=== PATIENT | female | born 1970 | race Caucasian/White ===

== ENCOUNTER 2024-08-24 00:50 | Inpatient (IN) | payer MEDICAID, SELFPAY ==
[2024-08-24] VITALS (10 sets, daily range): BP systolic 102–129; BP diastolic 60–73; PULSE 61–86; RESP 14–95; TEMP 36.4–37.1; O2SAT 93–99; BMI 26.6; BMI 30.9
--- NOTE | 2024-08-24 01:30 | PC.NURSE ---
no answer when called to be seen by provider
--- NOTE | 2024-08-24 01:59 | XR_ITS ---
Examination: CT cervical spine without contrast 2-D sagittal reconstructions 2-D coronal reconstructions 3-D reconstructions. Exam date and time:August 24, 2024 0307 hrs. Indications: Patient fell today with into the neck, neck pain CTDI:vol (mGy) 8.78 DLP: (mGycm) 165 Technique: Multiple 2 mm axial sections of the cervical spine have been obtained. The coronal and sagittal reconstructions have been obtained. 3-D reconstructions have been obtained. Low dose protocols were performed. One or more of the following dose reduction techniques were used; automated exposure control, adjustment of the mA and/or KV according to patient size, use of iterative reconstruction technique. Findings: The study is severely limited by continual patient motion No gross cervical fracture Impression: The study is severely limited by continual patient motion No gross cervical fracture Repeat this study as clinically warranted
--- NOTE | 2024-08-24 01:59 | XR_ITS ---
Examination: CT left knee, without contrast. 2-D sagittal reconstructions. 2-D coronal reconstructions. 3-D reconstructions. Date and time of exam:August 24, 2024 0310 hrs. Indications: Patient fell today with injury to the knee, knee pain CTDI: vol (mGy):9.93 DLP: (mGycm):281 Technique: Multiple 1.25 mm axial sections of the left knee without intravenous contrast have been obtained. 2-D sagittal and coronal reconstructions have been obtained. 3-D reconstructions have been obtained. Low dose protocols were performed. One or more of the following dose reduction techniques were used; automated exposure control, adjustment of the mA and/or KV according to patient size, use of iterative reconstruction technique. Findings: Acute fractures supracondylar femur extending to the prosthetic femoral condylar component No significant displacement No loosening of the orthopedic hardware Impression: Acute supracondylar fractures distal femur without significant displacement
--- NOTE | 2024-08-24 01:59 | XR_ITS ---
Examination: CT brain head without contrast. 2-D sagittal coronal reconstructions Date and time of exam:August 24, 2024 1507 hrs. Indications: Patient fell today with injury to the head, head pain CTDI: vol (mGy):45.4 DLP: (mGycm):856 Technique: Multiple CT axial sections of the brain have been obtained, 5 mm slice thickness. Contrast has not been administered. 2-D sagittal, coronal reconstructions have been obtained Low dose protocols were performed. One or more of the following dose reduction techniques were used; automated exposure control, adjustment of the mA and/or KV according to patient size, use of iterative reconstruction technique. Findings: The study is severely degraded by patient motion No gross hemorrhage mass effect or midline shift Impression: The study is severely degraded by continual patient motion No gross hemorrhage mass effect or midline shift Repeat this study as clinically warranted
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
--- NOTE | 2024-08-24 03:44 | PRELIM_ITS ---
CT scan of the head without intravenous contrast (axial sections with sagittal and coronal reformats). August 24, 2024 0307 hours Clinical History: Fall Comparison: None Findings: Motion artifact limits evaluation. There is no definite intracranial hemorrhage, extra-axial collection, mass, mass-effect or midline shift. There is good plaza-white differentiation. There is no CT evidence of acute large vascular territorial infarct. Ventricles are not enlarged or effaced. Visualized paranasal sinuses and tympanomastoid cavities are clear. The bony calvarium is intact. Impression: Limited study secondary to motion artifact. No definite intracranial hemorrhage, mass-effect or midline shift. No CT evidence of acute large vascular territorial infarct. Report Electronically Signed By: Lucio Haynes 08/24/2024 3:44:02 AM [EST]
--- NOTE | 2024-08-24 03:57 | PRELIM_ITS ---
CT scan of the cervical spine without intravenous contrast (axial sections with sagittal and coronal reformats). August 24, 2024 0307 hours Clinical History: Fall Comparison: None Findings: Motion artifact limits evaluation. There is no definite fracture, traumatic subluxation or other acute osseous abnormality of the cervical spine. There is straightening of the cervical spine. There are multilevel degenerative disc changes and spondylosis of the cervical spine with multilevel foraminal stenosis. The prevertebral soft tissues are unremarkable. Impression: Limited by motion artifact. No definite acute osseous abnormality of the cervical spine. Straightening of the cervical spine may indicate muscle spasm. Degenerative change. Report Electronically Signed By: Lucio Haynes 08/24/2024 3:56:41 AM [EST]
--- NOTE | 2024-08-24 04:07 | PRELIM_ITS ---
CT left knee without intravenous contrast (axial sections with sagittal and coronal reformats) August 24, 2024 at 0310 hours Clinical History: Fall; knee replacement. Comparison: None available at the time of this report. Findings: Status post bilateral knee joint replacement. No evidence of hardware loosening or failure. No dislocation. Acute fracture of the distal femur extending to the prosthesis. Impression: Acute fracture of the distal femur extending to the prosthesis. Orthopedic consult is recommended. Report Electronically Signed By: Slade Camargo 08/24/2024 4:06:43 AM [EST]
--- NOTE | 2024-08-24 05:08 | XR_ITS ---
Examination: Knee, left , 3 views Technique: Knee AP, lateral, oblique 3 views Date and time of exam: August 24, 2024 0516 hrs. Comparison June 24, 2021 Indications: Patient fell today with injury to the knee, knee pain. Findings: Acute supracondylar fracture distal femoral shaft. No significant displacement Tibia fibula appear intact Impression: Acute supracondylar fractures distal femoral shaft without significant displacement
[2024-08-24] MEDS: ONDANSETRON INJ 2 MG/ML INJ 2 ML 4 MG IV ×2 (06:09→10:32)
[2024-08-24] MEDS: MORPHINE SULF INJ 10 MG/ML VIAL 5 MG IVP (06:09)
[2024-08-24 06:38] LABS: Basophils % (Auto) 0 % (0-2.5); Eosinophils % (Auto) 0 % (0-10); Hematocrit 32.4 % (36.0-46.0); Immature Granulocytes % (Auto) 0 % (0-0); Immature Granulocytes Auto 0.02 Thou/mm3 (0.00-0.00); Lymphocytes % (Auto) 12 % (10-50); Mean Corpuscular Hemoglobin 29.3 pg (25.0-35.0); Mean Corpuscular Volume 86 fL (80-100); Monocytes # (Auto) 0.5 Thou/mm3 (0.0-0.8); Monocytes % (Auto) 6 % (0-12); Neutrophils # (Auto) 6.3 Thou/mm3 (1.8-7.7); Neutrophils % (Auto) 81 % (37-80); Nucleated Red Blood Cell % 0 /100 WBC (0); Platelet Count 242 Thou/mm3 (140-440); RDW Standard Deviation 44.1 fL (36.4-46.3); Red Blood Count 3.75 Miln/mm3 (4.00-5.20); White Blood Count 7.8 Thou/mm3 (3.6-11.0)
[2024-08-24 06:57] LABS: Alanine Aminotransferase 15 U/L (10-49); Albumin, Serum 4.4 gm/dL (3.5-5.0); Albumin/Globulin Ratio 1.7 (1.2-2.2); Alkaline Phosphatase 75 U/L (46-116); Anion Gap 6 (7-16); Aspartate Amino Transferase 14 U/L (0-34); BUN/Creatinine Ratio 15 Ratio (12-20); Bilirubin,Total 0.4 mg/dL (0.3-1.2); Blood Urea Nitrogen 12 mg/dL (9-23); Calcium 9.1 mg/dL (8.3-10.6); Calcium (Corrected) 9.1 mg/dL (8.5-10.1); Chloride 98 mMol/L (98-107); Creatinine (Component) 0.8 mg/dL (0.6-1.3); Estimated Creatinine Clearance 81.2 mL/min (>60); Globulin 2.6 gm/dL (2.3-3.5); Glucose 114 mg/dL (74-106); Osmolality,Calculated 263 (275-295); Potassium 4.3 mMol/L (3.4-5.1); Sodium 131 mMol/L (136-145); eGFR > 60 See Note
[2024-08-24 06:59] LABS: Partial Thromboplastin Time 24.5 Seconds (22.0-36.0); Prothrombin Time 10.8 Seconds (9.0-12.2)
--- NOTE | 2024-08-24 09:20 | PD.EDADDENDU ---
Emergency Room Addendum Addendum Narrative: 09:15 AM: Consultation I spoke with Dr. Oliveros states the patient is to be admitted to hospitalist service and he will consult for surgery 09:17 AM: Hospitalist Dr. Ramirez is here in the emergency department he will admit the patient At time of admission patient no distress
[2024-08-24] MEDS: MORPHINE SULF INJ 10 MG/ML VIAL IVP (10:31)
[2024-08-24] MEDS: SODIUM CHLORIDE 0.9% 1000 ML 1,000 ML 75 ML IV (10:38)
--- NOTE | 2024-08-24 12:25 | PC.NURSE ---
PT PASSED NURSE SWALLOW EVAL. LUNCH TRAY PROVIDED.
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
[2024-08-24] MEDS: NICOTINE PATCH 14 MG/24 HR PATCH.TD24 TOP (14:11)
[2024-08-24] MEDS: MORPHINE SULF INJ 10 MG/ML VIAL 2 MG IVP ×4 (14:12→22:12)
[2024-08-24 15:30] LABS: Sodium 138 mMol/L (136-145)
[2024-08-24] MEDS: ENOXAPARIN SOD INJ 40 MG/0.4 ML SYRINGE SC (15:39)
[2024-08-24] MEDS: HYDROcodone/APAP 5/325 TABLET 1 TAB PO ×2 (16:22→21:10)
[2024-08-25] VITALS (8 sets, daily range): BP systolic 102–121; BP diastolic 47–74; PULSE 63–84; RESP 16–97; TEMP 36–36.9; O2SAT 94–99
[2024-08-25] MEDS: MORPHINE SULF INJ 10 MG/ML VIAL 2 MG IVP ×4 (00:15→06:32)
[2024-08-25] MEDS: HYDROcodone/APAP 5/325 TABLET 1 TAB PO ×2 (01:11→05:26)
[2024-08-25 05:46] LABS: Basophils % (Auto) 0 % (0-2.5); Eosinophils % (Auto) 1 % (0-10); Hematocrit 28.3 % (36.0-46.0); Hemoglobin 9.3 g/dL (12.0-16.0); Immature Granulocytes % (Auto) 0 % (0-0); Immature Granulocytes Auto 0.01 Thou/mm3 (0.00-0.00); Lymphocytes # (Auto) 1.5 Thou/mm3 (1.0-4.8); Lymphocytes % (Auto) 32 % (10-50); Mean Corpuscular HGB Conc 32.9 g/dl (31.0-37.0); Mean Corpuscular Hemoglobin 29.4 pg (25.0-35.0); Mean Corpuscular Volume 90 fL (80-100); Monocytes # (Auto) 0.5 Thou/mm3 (0.0-0.8); Monocytes % (Auto) 11 % (0-12); Neutrophils # (Auto) 2.5 Thou/mm3 (1.8-7.7); Neutrophils % (Auto) 56 % (37-80); Nucleated Red Blood Cell % 0 /100 WBC (0); Platelet Count 198 Thou/mm3 (140-440); RDW Standard Deviation 46.9 fL (36.4-46.3); Red Blood Count 3.16 Miln/mm3 (4.00-5.20); White Blood Count 4.5 Thou/mm3 (3.6-11.0)
[2024-08-25 06:23] LABS: Alanine Aminotransferase 11 U/L (10-49); Albumin, Serum 3.9 gm/dL (3.5-5.0); Albumin/Globulin Ratio 1.8 (1.2-2.2); Alkaline Phosphatase 66 U/L (46-116); Anion Gap 3 (7-16); Aspartate Amino Transferase 11 U/L (0-34); BUN/Creatinine Ratio 13 Ratio (12-20); Bilirubin,Total 0.3 mg/dL (0.3-1.2); Blood Urea Nitrogen 8 mg/dL (9-23); Calcium 8.4 mg/dL (8.3-10.6); Calcium (Corrected) 8.5 mg/dL (8.5-10.1); Carbon Dioxide 30.4 mMol/L (20.0-31.0); Chloride 107 mMol/L (98-107); Creatinine (Component) 0.6 mg/dL (0.6-1.3); Estimated Creatinine Clearance 116.3 mL/min (>60); Globulin 2.2 gm/dL (2.3-3.5); Glucose 103 mg/dL (74-106); Magnesium 2.1 mg/dL (1.6-2.6); Osmolality,Calculated 277 (275-295); Potassium 3.7 mMol/L (3.4-5.1); Sodium 140 mMol/L (136-145); Total Protein 6.1 gm/dL (5.7-8.2); eGFR > 60 See Note
[2024-08-25] MEDS: NICOTINE PATCH 14 MG/24 HR PATCH.TD24 TOP (09:05)
[2024-08-25] MEDS: HYDROcodone/APAP 7.5/325 TABLET 1 TAB PO ×2 (09:05→21:50)
--- NOTE | 2024-08-25 09:50 | PC.SS ---
Patient Adrienne Garcia is a 54 Year old female admitted for L Femur Fracture. SS met with patient at bedside. Patient reports she lives at home with her life partner, She reports that her sister, Evelyne Carbone is her surrogate decision maker [phone]. Patient reports she did not utilize any source of DME to assist with ambulation prior to admission. Pharmacy of choice is [facility]. Prior to admission patient was able to complete ADL's independently. Patients PCP is Kain Velasquez. SS inquired about SNF. Patient is agreeable to discharge to SNF if needed. SS will submit SNF referral for SNF, [facility]. SS will stand by for further needs. Discharge plan: SNF Next of Kin: Sister, Evelyne Carbone [phone]
--- NOTE | 2024-08-25 09:57 | PC.SS ---
Patient Adrienne Garcia is a 54 Year old female admitted for L Femur Fracture. SS met with patient at bedside. Patient reports she lives at home with her life partner, She reports that her sister, Evelyne Carbone is her surrogate decision maker [phone]. Patient reports she did not utilize any source of DME to assist with ambulation prior to admission. Pharmacy of choice is [facility]. Prior to admission patient was able to complete ADL's independently. Patients PCP is Kain Velasquez. SS inquired about SNF. Patient is agreeable to discharge to SNF if needed. SS will submit SNF referral for SNF, [facility] choice [facility]. SS will stand by for further needs. Discharge plan: SNF Next of Kin: Sister, Evelyne Carbone [phone]
[2024-08-25] MEDS: HYDROmorphone INJ 2 MG/ML VIAL 0.25 MG IVP ×3 (11:27→20:03)
--- NOTE | 2024-08-25 12:41 | PC.SS ---
SS follow up note; SS sent SNF referral through [facility] to all local facilities, SS attachedf [facility] as well.
--- NOTE | 2024-08-25 15:44 | ESPR_ITS ---
<Statement entered by Neva Bonds MD - 08/25/24 16:57> I discussed with and supervised my co-resident involved in the care of this patient. I agree with the assessment and plan as documented above. Patient admitted for L femur fracture. Plan for OR tomorrow with Dr. Oliveros. Neva Bonds MD PGY-3 Documentation for date of: 08/25/24 Subjective Subjective Interval history: Patient was seen at bedside this morning. No overnight events. Patient received multiple doses of morphine 2 mg yesterday as well as [place]. Switch patient's pain management to Dilaudid 0.25 every 4 hours and increased [place] to 7.5. NPO at midnight for surgery tomorrow. Exam Vital Signs Temp Pulse Resp BP Pulse Ox O2 Del Method 98.5 F 74 16 110/74 98 Room Air 08/25/24 11:43 08/25/24 11:43 08/25/24 11:43 08/25/24 11:43 08/25/24 11:43 08/25/24 11:43 Narrative Exam General: A/O x3, no acute distress, well-nourished, well-developed Eyes: PERRL, EOMI. Anicteric, vision grossly intact. Ears: No ear pain, no ear discharge, Hearing grossly intact. Nose: No nasal discharge. Mouth/Throat: Moist mucous membranes, no redness, no lesions. Neck: Neck supple, non-tender, no cervical lymphadenopathy. Lungs: Clear HELIO to auscultation and percussion, No accessory muscle use. Cardio: Normal S1/S2, regular rhythm, no murmurs, no JVD Abdomen: Soft, non-tender, no palpable masses, peristalsis present, no guarding or rebound. Extremities: Symmetrical, no significant deformities, no peripheral edema , peripheral pulses presents. L knee still swollen and tender to palpation, no bruising appreciated Skin: No rashes, no lesions, warm to touch. Neuro: No focal neurological deficits. motor and sensory intact Psych: Cooperative, appropriate mood and effect. Objective Labs 08/26/24 04:58 08/26/24 04:58 Labs: Laboratory Results - last 24 hr 08/25/24 08/25/24 03:55 14:26 WBC 4.5 D RBC 3.16 L Hgb 9.3 L Hct 28.3 L MCV 90 MCH 29.4 MCHC 32.9 RDW Std Deviation 46.9 H Plt Count 198 D Neut % (Auto) 56 Lymph % (Auto) 32 [place] % (Auto) 11 Eos % (Auto) 1 Baso % (Auto) 0 Neut # (Auto) 2.5 Lymph # (Auto) 1.5 [place] # (Auto) 0.5 Eos # (Auto) 0.0 Baso # (Auto) 0.0 Immature Gran # (Auto) 0.01 H Absolute Nucleated RBC 0.00 Immature Gran % 0 Nucleated RBC % 0 Sodium 140 Potassium 3.7 D Chloride 107 Carbon Dioxide 30.4 Anion Gap 3 L BUN 8 L Creatinine 0.6 Estim Creat Clear Calc 116.3 eGFR > 60 BUN/Creatinine Ratio 13 Glucose 103 Calculated Osmolality 277 Calcium 8.4 Corrected Calcium 8.5 Magnesium 2.1 Total Bilirubin 0.3 AST 11 ALT 11 Alkaline Phosphatase 66 Total Protein 6.1 Albumin 3.9 D Globulin 2.2 L Albumin/Globulin Ratio 1.8 Crossmatch See Detail Blood Bank Wristband ID Yes Quality Measures Quality Measures none Assessment & Plan Assessment Current Active Medications: Generic Name Dose Route Start Last Admin Trade Name Freq PRN Reason Stop Dose Admin Acetaminophen 650 mg 08/24/24 16:17 Acetaminophen 325 Mg Tablet PO 09/23/24 10:09 Q6H PRN pain and Fever >100.4 Hydrocodone Bitart/Acetaminophen 1 tab 08/25/24 09:00 08/25/24 09:05 Hydrocodone/Apap 7.5/325 Tablet PO 08/30/24 08:59 1 tab Q4HR PRN Administration PAIN 4-6 Hydromorphone HCl 0.25 mg 08/25/24 11:00 08/25/24 15:36 Hydromorphone Inj 2 Mg/Ml Vial IVP 08/30/24 10:59 0.25 mg Q4HR PRN Administration PAIN 7-10 Nicotine 14 mg 08/24/24 10:15 08/25/24 09:05 Nicotine Patch 14 Mg/24 Hr Patch.Td24 TOP 09/23/24 10:14 14 mg QDAY OMAR Administration Ondansetron HCl 4 mg 08/24/24 10:10 08/24/24 10:32 Ondansetron Inj 2 Mg/Ml Inj 2 Ml IV 09/23/24 10:09 4 mg Q6H PRN Administration NAUSEA OR VOMITING Protocol Plan 54-year-old female with past medical history of bilateral knee replacement, active smoker, and Anxiety/Depression was admitted to the hospital on 08/24/2024 for nondisplaced left femoral fracture. #Nondisplaced left femoral fracture secondary to #Mechanical fall #Hx of bilateral knee replacement ? Patient came in with complaints of mechanical fall in which she landed on her bent left knee ? Left knee CT showed acute supracondylar fracture of the distal femur without significant displacement ? Left knee x-ray showed acute supracondylar fracture of distal femoral shaft without significant displacement ?Patient will go to the OR tomorrow, NPO midnight Plan: ? Pain management with Dilaudid 0.25 every 4 hours as needed, increased [place] to 7.5 4 hours as needed, and Tylenol 650 mg Q6 as needed ? Orthopedic surgeon consulted, appreciate recommendations ?Will to monitor #Hypoosmolar hyponatremia ? Sodium 140 today ? Likely be due to dehydration given the patient did not have anything to drink or eat prior to going to the hospital Plan: ? Will continue to monitor #Normocytic normochromic anemia ? Hemoglobin today 9.3 ? Baseline hemoglobin 12.1 ? DDx nutrient deficiency versus less likely blood loss ?No active signs of bleeding Plan: ? Will check for hemoglobin less than 7 ? Will continue to monitor #Active smoker ? Active smoking can play a role in possible underlying osteoporosis ? Nicotine patch ordered #Hx of Anxiety and Depression ? Will restart patient's home medications once med reconciliation is done Disposition: Patient admitted to med surg for L femoral fracture pending surgery on Sunday. Diet: NPO at midnight GI prophylaxis: not indicated DVT prophylaxis: SCDs Code: Full code Case disclosed with Attending Dr. Roa and my senior Dr. Bonds PGY3 Mac Brooks PGY1 Attending Provider Attestation/Addendum Face to face evaluation was performed by me. I have personally seen and examined the patient. I discussed the assessment and plan with the entire medicine team. I reviewed available medical records, imaging studies, laboratory results. I agree with the above subjective data, objective findings, assessment and plan except as corrected by me or noted below #Nondisplaced left femoral fracture secondary to #Mechanical fall #Hx of bilateral knee replacement -pain control orthopedic surgery consulted plan for OR
[2024-08-26] VITALS (13 sets, daily range): BP systolic 90–143; BP diastolic 58–85; PULSE 56–101; RESP 14–95; TEMP 36.1–37; O2SAT 95–100
[2024-08-26] MEDS: HYDROmorphone INJ 2 MG/ML VIAL 0.25 MG IVP ×5 (00:17→22:26)
[2024-08-26 06:15] LABS: Basophils % (Auto) 1 % (0-2.5); Eosinophils # (Auto) 0.1 Thou/mm3 (0.0-0.5); Eosinophils % (Auto) 1 % (0-10); Hematocrit 28.5 % (36.0-46.0); Hemoglobin 9.5 g/dL (12.0-16.0); Immature Granulocytes % (Auto) 0 % (0-0); Immature Granulocytes Auto 0.02 Thou/mm3 (0.00-0.00); Lymphocytes # (Auto) 1.6 Thou/mm3 (1.0-4.8); Lymphocytes % (Auto) 34 % (10-50); Mean Corpuscular HGB Conc 33.3 g/dl (31.0-37.0); Mean Corpuscular Hemoglobin 29.3 pg (25.0-35.0); Mean Corpuscular Volume 88 fL (80-100); Monocytes # (Auto) 0.6 Thou/mm3 (0.0-0.8); Monocytes % (Auto) 12 % (0-12); Neutrophils # (Auto) 2.5 Thou/mm3 (1.8-7.7); Neutrophils % (Auto) 52 % (37-80); Nucleated Red Blood Cell % 0 /100 WBC (0); Platelet Count 225 Thou/mm3 (140-440); RDW Standard Deviation 45.5 fL (36.4-46.3); Red Blood Count 3.24 Miln/mm3 (4.00-5.20); White Blood Count 4.7 Thou/mm3 (3.6-11.0)
[2024-08-26 06:33] LABS: Alanine Aminotransferase 9 U/L (10-49); Albumin, Serum 4.1 gm/dL (3.5-5.0); Albumin/Globulin Ratio 1.8 (1.2-2.2); Alkaline Phosphatase 68 U/L (46-116); Anion Gap 5 (7-16); Aspartate Amino Transferase 14 U/L (0-34); BUN/Creatinine Ratio 12 Ratio (12-20); Bilirubin,Total 0.4 mg/dL (0.3-1.2); Blood Urea Nitrogen 6 mg/dL (9-23); Calcium 9.1 mg/dL (8.3-10.6); Calcium (Corrected) 9.1 mg/dL (8.5-10.1); Carbon Dioxide 29.6 mMol/L (20.0-31.0); Chloride 104 mMol/L (98-107); Creatinine (Component) 0.5 mg/dL (0.6-1.3); Estimated Creatinine Clearance 139.6 mL/min (>60); Globulin 2.3 gm/dL (2.3-3.5); Glucose 91 mg/dL (74-106); Magnesium 1.8 mg/dL (1.6-2.6); Osmolality,Calculated 275 (275-295); Potassium 3.5 mMol/L (3.4-5.1); Sodium 139 mMol/L (136-145); Total Protein 6.4 gm/dL (5.7-8.2); eGFR > 60 See Note
[2024-08-26] MEDS: NICOTINE PATCH 14 MG/24 HR PATCH.TD24 TOP (08:39)
[2024-08-26] MEDS: SODIUM CHLORIDE 0.9% 1000 ML 1,000 ML 100 ML IV (08:41)
--- NOTE | 2024-08-26 10:00 | PC.SS ---
SS contacted Sarah from [facility] and she informed SS she would be coming by to do an onsite visit to determine if they are able to take patient.
--- NOTE | 2024-08-26 12:31 | PC.SS ---
Addendum entered by Lauren Fuentes 08/26/24 12:44: SS follow up note; SS attempted to meet with patient in regards to SNF choice, however patient was taken to surgery. SS will meet with patient at a later time. Original Note: SS follow up note; Patient is pending surgery.
--- NOTE | 2024-08-26 12:45 | XR_ITS ---
Examination: Left femur 4 views Fluoroscopy Exam date and time: August 26, 2024 1538 hours INDICATIONS: Acute fracture distal femur August 24, 2024, operative reduction internal fixation fracture today FINDINGS: Operative reduction internal fixation fracture distal femoral shaft Anatomic alignment Orthopedic hardware satisfactory position Fluoroscopy 54 seconds radiation dose 2.48 milligray IMPRESSION: Operative reduction internal fixation fracture distal femur with anatomic alignment
--- NOTE | 2024-08-26 13:32 | ESPR_ITS ---
<Statement entered by Neva Bonds MD - 08/26/24 15:28> I discussed with and supervised my co-resident involved in the care of this patient. I agree with the assessment and plan as documented above. Patient seen and examined at bedside. Overnight, had extra dose of pain medication. This morning, patient is feeling well. Patient able to move toes, feet are warm. Plan for OR today to repair left femur fracture. After surgery, will get PT eval and start DVT prophylaxis. Neva Bonds MD PGY-3 Documentation for date of: 08/26/24 Subjective Subjective Interval history: Patient was seen at bedside this morning. No overnight events. Patient remained n.p.o. as she was going for the OR today. She had a negative balance of 3.1 L therefore gave patient 1 L of normal saline. Patient will be taken to the OR today in the afternoon. Pain is well controlled. Will continue to monitor. Exam Vital Signs Temp Pulse Resp BP Pulse Ox O2 Del Method 97.5 F 74 18 121/61 95 Room Air 08/26/24 12:00 08/26/24 12:00 08/26/24 12:00 08/26/24 12:00 08/26/24 12:00 08/26/24 12:00 Narrative Exam General: A/O x3, no acute distress, well-nourished, well-developed Eyes: PERRL, EOMI. Anicteric, vision grossly intact. Ears: No ear pain, no ear discharge, Hearing grossly intact. Nose: No nasal discharge. Mouth/Throat: Moist mucous membranes, no redness, no lesions. Neck: Neck supple, non-tender, no cervical lymphadenopathy. Lungs: Clear HELIO to auscultation and percussion, No accessory muscle use. Cardio: Normal S1/S2, regular rhythm, no murmurs, no JVD Abdomen: Soft, non-tender, no palpable masses, peristalsis present, no guarding or rebound. Extremities: Symmetrical, no significant deformities, no peripheral edema , peripheral pulses presents. L knee still swollen and tender to palpation, no bruising appreciated Skin: No rashes, no lesions, warm to touch. Neuro: No focal neurological deficits. motor and sensory intact Psych: Cooperative, appropriate mood and effect. Objective Labs 08/26/24 04:58 08/26/24 04:58 Labs: Laboratory Results - last 24 hr 08/25/24 08/26/24 14:26 04:58 WBC 4.7 RBC 3.24 L Hgb 9.5 L Hct 28.5 L MCV 88 MCH 29.3 MCHC 33.3 RDW Std Deviation 45.5 Plt Count 225 Neut % (Auto) 52 Lymph % (Auto) 34 Wallace % (Auto) 12 Eos % (Auto) 1 Baso % (Auto) 1 Neut # (Auto) 2.5 Lymph # (Auto) 1.6 Wallace # (Auto) 0.6 Eos # (Auto) 0.1 Baso # (Auto) 0.0 Immature Gran # (Auto) 0.02 H Absolute Nucleated RBC 0.00 Immature Gran % 0 Nucleated RBC % 0 Sodium 139 Potassium 3.5 Chloride 104 Carbon Dioxide 29.6 Anion Gap 5 L BUN 6 L Creatinine 0.5 L Estim Creat Clear Calc 139.6 eGFR > 60 BUN/Creatinine Ratio 12 Glucose 91 Calculated Osmolality 275 Calcium 9.1 Corrected Calcium 9.1 Magnesium 1.8 Total Bilirubin 0.4 AST 14 ALT 9 L Alkaline Phosphatase 68 Total Protein 6.4 Albumin 4.1 Globulin 2.3 Albumin/Globulin Ratio 1.8 Blood Type B Positive Antibody Screen NEGATIVE Crossmatch See Detail Blood Bank Wristband ID Yes Quality Measures Quality Measures none Assessment & Plan Assessment Current Active Medications: Generic Name Dose Route Start Last Admin Trade Name Freq PRN Reason Stop Dose Admin Acetaminophen 650 mg 08/24/24 16:17 Acetaminophen 325 Mg Tablet PO 09/23/24 10:09 Q6H PRN pain and Fever >100.4 Hydrocodone Bitart/Acetaminophen 1 tab 08/25/24 09:00 08/25/24 21:50 Hydrocodone/Apap 7.5/325 Tablet PO 08/30/24 08:59 1 tab Q4HR PRN Administration PAIN 4-6 Albuterol/Ipratropium 3 ml 08/26/24 13:14 Albuterol/Ipratropium (Duoneb) Rt Marnie 3 Ml Nebu INH 08/26/24 15:14 Q4HRRT PRN WHEEZING Fentanyl Citrate 25 mcg 08/26/24 13:14 Fentanyl Cit Inj 50 Mcg/Ml Amp 2ml IV 08/26/24 15:14 Q5M PRN PAIN SCALE 1-3 (mild Fentanyl Citrate 50 mcg 08/26/24 13:14 Fentanyl Cit Inj 50 Mcg/Ml Amp 2ml IV 08/26/24 15:14 Q5M PRN PAIN SCALE 4-6 (Moderate Hydromorphone HCl 0.25 mg 08/25/24 11:00 08/26/24 08:40 Hydromorphone Inj 2 Mg/Ml Vial IVP 08/30/24 10:59 0.25 mg Q4HR PRN Administration PAIN 7-10 Hydromorphone HCl 0.5 mg 08/26/24 13:14 Hydromorphone Inj 2 Mg/Ml Vial IV 08/26/24 15:14 Q5M PRN PAIN SCALE 7-10 (Severe Sodium Chloride 1,000 mls @ 100 mls/hr 08/26/24 08:15 08/26/24 08:41 Ns IV 08/26/24 18:14 100 mls/hr .Q10H OMAR Administration Nicotine 14 mg 08/24/24 10:15 08/26/24 08:39 Nicotine Patch 14 Mg/24 Hr Patch.Td24 TOP 09/23/24 10:14 14 mg QDAY OMAR Administration Ondansetron HCl 4 mg 08/24/24 10:10 08/24/24 10:32 Ondansetron Inj 2 Mg/Ml Inj 2 Ml IV 09/23/24 10:09 4 mg Q6H PRN Administration NAUSEA OR VOMITING Protocol Plan 54-year-old female with past medical history of bilateral knee replacement, active smoker, and Anxiety/Depression was admitted to the hospital on 08/24/2024 for nondisplaced left femoral fracture. #Nondisplaced left femoral fracture secondary to #Mechanical fall #Hx of bilateral knee replacement ? Patient came in with complaints of mechanical fall in which she landed on her bent left knee ? Left knee CT showed acute supracondylar fracture of the distal femur without significant displacement ? Left knee x-ray showed acute supracondylar fracture of distal femoral shaft without significant displacement ?Patient will go to the OR today Plan: ? Pain management with Dilaudid 0.25 every 4 hours as needed, increased [place] to 7.5 4 hours as needed, and Tylenol 650 mg Q6 as needed ? Orthopedic surgeon consulted, appreciate recommendations -PT tomorrow ?Will to monitor #Hypoosmolar hyponatremia ? Sodium 139 today ? Likely be due to dehydration given the patient did not have anything to drink or eat prior to going to the hospital Plan: ? Will continue to monitor #Normocytic normochromic anemia ? Hemoglobin today 9.5 ? Baseline hemoglobin 12.1 ? DDx nutrient deficiency versus less likely blood loss ?No active signs of bleeding Plan: ? Will check for hemoglobin less than 7 ? Will continue to monitor #Active smoker ? Active smoking can play a role in possible underlying osteoporosis ? Nicotine patch ordered #Hx of Anxiety and Depression ? Will restart patient's Abilify 10mg qday and Prozac 60mg qday Disposition: Patient admitted to med surg for L femoral fracture pending surgery today and PT tomorrow. Diet: NPO GI prophylaxis: not indicated DVT prophylaxis: SCDs Code: Full code Case disclosed with Attending Dr. Roa and my senior Dr. Bonds PGY3 Mac Brooks PGY1 Attending Provider Attestation/Addendum Face to face evaluation was performed by me. I have personally seen and examined the patient. I discussed the assessment and plan with the entire medicine team. I reviewed available medical records, imaging studies, laboratory results. I agree with the above subjective data, objective findings, assessment and plan except as corrected by me or noted below #Nondisplaced left femoral fracture secondary to #Mechanical fall #Hx of bilateral knee replacement -pain control plan for OR today fu with recs
--- NOTE | 2024-08-26 14:59 | PD.SUROPNT ---
Date of Procedure 08/26/24 Pre Op Diagnosis Left distal femur fracture. He is status post left total knee replacement Post Op Diagnosis Same Procedure Open reduction internal fixation with 6-hole distal femur interlocking plate. Synthes DePPiqniq implant Findings Refer dictation Procedure Description Patient was given general endotracheal anesthesia. Once satisfactory anesthesia achieved the part was thoroughly prepped and draped. Intravenous antibiotics was given at the time of anesthesia Position of the fracture was checked under C-arm and found to be rather good. A skin incision was made from the knee joint line on the lateral aspect extending proximally for about 7 to 8 inches long. Deeper dissection was carried out. Bleeding vessels were electrocoagulated. The tensor fascia ben was incised all along the vertical length up to the skin incision. The vastus lateralis muscle was then reflected from the posterior lateral aspect to anterior. The fracture was exposed. All the bleeding is vessels were electrocoagulated. The plate was mounted over the lateral aspect and checked on the C arm. Following that through the central hole a guidepin was passed. On the proximal aspect also K wire was passed through one of the hole to hold the plate under the shaft of the femur. Position checked under C arm in AP and lateral position and found to be extremely good Following that the central hole of the plate at the distal end was drilled and after measuring appropriate side cortical screw was placed. Similarly 2 cortical screws were placed in proximally. Plate was snugly fitted over the lateral aspect of the femur Following that for interlocking screw was placed distally and 2 interlocking screw was placed proximally. Patient was repeatedly checked under C arm. Wound was irrigated with antibiotic solution every 4 to 5 minutes Closure the vastus lateralis muscle was closed with help of 2-0 Vicryl. The tensor fascia ben was closed with the help of 1-0 Vicryl in continuous fashion. The subcu tissue was closed with 2-0 Vicryl and the skin was closed with juan After cleaning the wound with hydrogen peroxide solution a sterile dressing was applied Patient tolerated procedure very well. Estimated blood loss 250 mL to 300 mL. Prognosis in this case is good. Anesthesia GETA Pathology / specimen None Estimated Blood Loss 250 Surgeon Kain Velasquez MD Surgical Staff Operation Date: 08/26/24 12:00 Case Staff SUPERVISOR ROVING: William Amador RNbioprocess engineer: Trista Mckeon
--- NOTE | 2024-08-26 15:05 | SUR.PHASEI ---
pt received from OR in recovery bay 3. pt asleep but responds to voice, breathing unlabored on oxymask 6l. v/s stable. pt dressing to left lower extremity cdi. report received from William WALLACE and Emma CODY.
--- NOTE | 2024-08-26 15:06 | XR_ITS ---
Examination: AP lateral left knee 2 views Technique one AP lateral left knee 2 views Exam date and time: August 26, 2024 1526 hours INDICATIONS: Postop reduction internal fixation fracture distal femur IMPRESSION: Postop reduction internal fixation fracture distal femoral shaft Anatomic alignment Orthopedic hardware satisfactory position IMPRESSION: Postop reduction internal fixation fracture distal femoral shaft with anatomic alignment
[2024-08-26] MEDS: fentaNYL CIT INJ 50 mCg/ML AMP 2ML IV ×2 (15:20→15:43)
--- NOTE | 2024-08-26 15:35 | ESCONSULT_ITS ---
RE: MARLA GUPTA : 1970 DATE OF CONSULTATION: 08/24/2024 Thank you, Dr. Mario, for asking me to consult on the patient whom I saw in the emergency room on 08/24/2024. HISTORY OF PRESENT COMPLAINT: The patient is status post bilateral total knee replacement. On 08/24/2024, the patient was drinking tea and some tea spilled. The patient wanted to wipe the spilled tea on the floor and she tried to bend and she slipped on the tea itself and injured her left knee. Subsequent to that, the patient experienced excruciating pain and was unable to put any weight on it. The patient was brought to the emergency room. X-ray was obtained, which revealed a spiral very minimally displaced fracture of the left distal femur. PAST MEDICAL HISTORY: The patient has a history of anxiety and depression. No history of diabetes mellitus, high blood pressure, asthma, seizures, chest pain or myocardial infarction. PAST SURGICAL HISTORY: Include and hernia repair. The patient also had ectopic . The patient also underwent right knee arthroscopy, tubal ligation. The patient also underwent bilateral knee replacement recently. DRUG HISTORY: The patient is on trazodone, gabapentin, tizanidine, fluoxetine. ALLERGIES: NIL KNOWN. FAMILY HISTORY AND SOCIAL HISTORY: Noncontributory. PHYSICAL EXAMINATION: General: When I saw the patient, the patient was fully alert and oriented. Vital Signs: Pulse is 82 per minute. Blood pressure 130/76. Neck: Soft, supple. No mass felt. Trachea is centrally placed. Cardiovascular System: First and second heart sounds normal. No murmur heard. Respiratory System: Bilateral vascular breath sounds. Chest clear. Abdomen: Soft. No mass felt. Bowel sounds present. Extremities: Left knee and distal femur examination reveals swelling. There is 1+ tenderness. Neurovascularly it is intact. Range of motion was not tested. DIAGNOSTIC DATA: X-ray of the left knee joint was reviewed. It revealed a spiral fracture of the distal femur. However, it was not going to the implant or in the joint. CT scan of the knee was also obtained to reconfirm the findings. After looking at the x-rays and lab work, etc., I explained to the patient that she needs fixation with surgical procedure. That plate and screws will be put on. Risks of anesthesia was explained and that includes, but not limited to reaction to anesthetic agents, cardiac arrest, rarely it might be fatal. Risks with operations include infection and if that happens, the patient may need further surgical procedure. Other risks include delayed healing, wound dehiscence etc. There is a risk of infection as well. No guarantees given regarding outcome of the procedure and/or relief of symptoms. Accordingly, the patient wants to proceed with surgery. Surgery is booked for 08/26/2024. Appropriate lab work is done. DT: 15:10:05 TT: 15:34:00 Ref: [id number] - TID: [id number]
--- NOTE | 2024-08-26 15:55 | SUR.PHASEI ---
pt awake and alert, breathing unlabored on 3l nc. v/s stable. pt dressing to left lower extremity cdi. report called to Tereza CODY. pt will be transferred to room at this time.
[2024-08-26] MEDS: ceFAZolin/D5W 1 GM IVPB 1 GM/50 ML BAG IV ×2 (16:17→23:41)
[2024-08-26] MEDS: HYDROcodone/APAP 7.5/325 TABLET 1 TAB PO (19:46)
[2024-08-27] VITALS (7 sets, daily range): BP systolic 103–131; BP diastolic 60–76; PULSE 60–81; RESP 16–98; TEMP 36.3–37.1; O2SAT 96–98; BMI 30.9
[2024-08-27] MEDS: HYDROcodone/APAP 7.5/325 TABLET 1 TAB PO ×4 (02:04→20:18)
[2024-08-27] MEDS: HYDROmorphone INJ 2 MG/ML VIAL 0.25 MG IVP ×4 (03:35→22:19)
[2024-08-27 05:50] LABS: Basophils % (Auto) 0 % (0-2.5); Eosinophils % (Auto) 0 % (0-10); Hematocrit 28.9 % (36.0-46.0); Hemoglobin 9.8 g/dL (12.0-16.0); Immature Granulocytes % (Auto) 0 % (0-0); Immature Granulocytes Auto 0.02 Thou/mm3 (0.00-0.00); Lymphocytes # (Auto) 0.8 Thou/mm3 (1.0-4.8); Lymphocytes % (Auto) 10 % (10-50); Mean Corpuscular HGB Conc 33.9 g/dl (31.0-37.0); Mean Corpuscular Volume 86 fL (80-100); Monocytes # (Auto) 0.5 Thou/mm3 (0.0-0.8); Monocytes % (Auto) 7 % (0-12); Neutrophils # (Auto) 6.5 Thou/mm3 (1.8-7.7); Neutrophils % (Auto) 83 % (37-80); Nucleated Red Blood Cell % 0 /100 WBC (0); Platelet Count 186 Thou/mm3 (140-440); RDW Standard Deviation 44.2 fL (36.4-46.3); Red Blood Count 3.38 Miln/mm3 (4.00-5.20); White Blood Count 7.8 Thou/mm3 (3.6-11.0)
[2024-08-27 06:33] LABS: Alanine Aminotransferase 12 U/L (10-49); Albumin/Globulin Ratio 1.9 (1.2-2.2); Alkaline Phosphatase 61 U/L (46-116); Anion Gap 6 (7-16); Aspartate Amino Transferase 14 U/L (0-34); BUN/Creatinine Ratio 12 Ratio (12-20); Bilirubin,Total 0.5 mg/dL (0.3-1.2); Blood Urea Nitrogen 6 mg/dL (9-23); Calcium 8.6 mg/dL (8.3-10.6); Calcium (Corrected) 8.6 mg/dL (8.5-10.1); Carbon Dioxide 26.8 mMol/L (20.0-31.0); Chloride 104 mMol/L (98-107); Creatinine (Component) 0.5 mg/dL (0.6-1.3); Estimated Creatinine Clearance 139.6 mL/min (>60); Globulin 2.1 gm/dL (2.3-3.5); Glucose 116 mg/dL (74-106); Magnesium 1.8 mg/dL (1.6-2.6); Osmolality,Calculated 272 (275-295); Potassium 3.8 mMol/L (3.4-5.1); Sodium 137 mMol/L (136-145); Total Protein 6.1 gm/dL (5.7-8.2); eGFR > 60 See Note
[2024-08-27] MEDS: ARIPiprazole 5 MG TABLET 10 MG PO (08:18)
[2024-08-27] MEDS: ASPIRIN EC 81 MG TABEC PO ×2 (08:18→20:18)
[2024-08-27] MEDS: NICOTINE PATCH 14 MG/24 HR PATCH.TD24 TOP (08:18)
[2024-08-27] MEDS: FLUoxetine HCL 10 MG CAPSULE 60 MG PO (08:18)
[2024-08-27] MEDS: LACTULOSE SYRUP 20 GM/30 ML UDC PO (09:42)
--- NOTE | 2024-08-27 10:10 | ESPR_ITS ---
<Statement entered by Neva Bonds MD - 08/27/24 16:21> I discussed with and supervised my co-resident involved in the care of this patient. I agree with the assessment and plan as documented above. Patient seen and examined at bedside. POD 1. Pain is tolerable, on dilaudid and norco with intent to wean of dilaudid. Was able to get up with PT today and put weight on left leg. Will start DVT prophylaxis with aspirin BID and anticipate discharge to SNF within the next 24-48 hours. Neva Bonds MD PGY-3 Documentation for date of: 08/27/24 Subjective Subjective Interval history: Patient was seen at bedside this morning. She underwent successful open reduction with internal fixation of the left femur fracture. Orthopedic surgeon stated that he would like aspirin 81 mg twice daily for DVT prophylaxis. Physical therapy was ordered, pending recommendations. Patient states that her pain was appropriate yesterday, but is otherwise well-controlled with her pain regimen. No other complaints at this time. Exam Vital Signs Temp Pulse Resp BP Pulse Ox O2 Del Method O2 Flow Rate 98.0 F 70 18 131/76 H 96 Room Air 2.5 08/27/24 08:00 08/27/24 08:00 08/27/24 08:00 08/27/24 08:00 08/27/24 08:00 08/27/24 08:00 08/27/24 00:00 Narrative Exam General: A/O x3, no acute distress, well-nourished, well-developed Eyes: PERRL, EOMI. Anicteric, vision grossly intact. Ears: No ear pain, no ear discharge, Hearing grossly intact. Nose: No nasal discharge. Mouth/Throat: Moist mucous membranes, no redness, no lesions. Neck: Neck supple, non-tender, no cervical lymphadenopathy. Lungs: Clear HELIO to auscultation and percussion, No accessory muscle use. Cardio: Normal S1/S2, regular rhythm, no murmurs, no JVD Abdomen: Soft, non-tender, no palpable masses, peristalsis present, no guarding or rebound. Extremities: Symmetrical, no significant deformities, no peripheral edema , peripheral pulses presents. L knee wrapped with clean bandages. Skin: No rashes, no lesions, warm to touch. Neuro: No focal neurological deficits. motor and sensory intact Psych: Cooperative, appropriate mood and effect. Objective Labs 08/28/24 04:01 08/28/24 04:01 Labs: Laboratory Results - last 24 hr 08/25/24 08/27/24 14:26 04:24 WBC 7.8 D RBC 3.38 L Hgb 9.8 L Hct 28.9 L MCV 86 MCH 29.0 MCHC 33.9 RDW Std Deviation 44.2 Plt Count 186 D Neut % (Auto) 83 H Lymph % (Auto) 10 Cedar % (Auto) 7 Eos % (Auto) 0 Baso % (Auto) 0 Neut # (Auto) 6.5 Lymph # (Auto) 0.8 L Cedar # (Auto) 0.5 Eos # (Auto) 0.0 Baso # (Auto) 0.0 Immature Gran # (Auto) 0.02 H Absolute Nucleated RBC 0.00 Immature Gran % 0 Nucleated RBC % 0 Sodium 137 Potassium 3.8 Chloride 104 Carbon Dioxide 26.8 Anion Gap 6 L BUN 6 L Creatinine 0.5 L Estim Creat Clear Calc 139.6 eGFR > 60 BUN/Creatinine Ratio 12 Glucose 116 H Calculated Osmolality 272 L Calcium 8.6 Corrected Calcium 8.6 Magnesium 1.8 Total Bilirubin 0.5 AST 14 ALT 12 Alkaline Phosphatase 61 Total Protein 6.1 Albumin 4.0 Globulin 2.1 L Albumin/Globulin Ratio 1.9 Blood Type B Positive Antibody Screen NEGATIVE Crossmatch See Detail Blood Bank Wristband ID Yes Quality Measures Quality Measures none Assessment & Plan Assessment Current Active Medications: Generic Name Dose Route Start Last Admin Trade Name Freq PRN Reason Stop Dose Admin Acetaminophen 650 mg 08/24/24 16:17 Acetaminophen 325 Mg Tablet PO 09/23/24 10:09 Q6H PRN pain and Fever >100.4 Hydrocodone Bitart/Acetaminophen 1 tab 08/25/24 09:00 08/27/24 08:18 Hydrocodone/Apap 7.5/325 Tablet PO 08/30/24 08:59 1 tab Q4HR PRN Administration PAIN 4-6 Aripiprazole 10 mg 08/27/24 09:00 08/27/24 08:18 Aripiprazole 5 Mg Tablet PO 09/26/24 08:59 10 mg DAILY OMAR Administration Aspirin 81 mg 08/27/24 09:00 08/27/24 08:18 Aspirin Ec 81 Mg Tabec PO 09/26/24 08:59 81 mg BID OMAR Administration Fluoxetine HCl 60 mg 08/27/24 09:00 08/27/24 08:18 Fluoxetine Hcl 10 Mg Capsule PO 09/26/24 08:59 60 mg QAM OMAR Administration Hydromorphone HCl 0.25 mg 08/25/24 11:00 08/27/24 09:43 Hydromorphone Inj 2 Mg/Ml Vial IVP 08/30/24 10:59 0.25 mg Q4HR PRN Administration PAIN 7-10 Morphine Sulfate 4 mg 08/26/24 16:02 Morphine Sulf Inj 10 Mg/Ml Vial IV 08/31/24 16:01 Q4HR PRN PAIN Nicotine 14 mg 08/24/24 10:15 08/27/24 08:18 Nicotine Patch 14 Mg/24 Hr Patch.Td24 TOP 09/23/24 10:14 14 mg QDAY OMAR Administration Ondansetron HCl 4 mg 08/26/24 16:02 Ondansetron Inj 2 Mg/Ml Inj 2 Ml IV 09/25/24 16:01 Q6HR PRN NAUSEA OR VOMITING Plan 54-year-old female with past medical history of bilateral knee replacement, active smoker, and Anxiety/Depression was admitted to the hospital on 08/24/2024 for nondisplaced left femoral fracture. #Nondisplaced left femoral fracture, s/p ORIF (08/26/2024) #Mechanical fall #Hx of bilateral knee replacement ? Patient came in with complaints of mechanical fall in which she landed on her bent left knee ? Left knee CT showed acute supracondylar fracture of the distal femur without significant displacement ? Left knee x-ray showed acute supracondylar fracture of distal femoral shaft without significant displacement ?Patient had sucessful ORIF Plan: ? Pain management with Dilaudid 0.25 every 4 hours as needed, increased [place] to 7.5 4 hours as needed, and Tylenol 650 mg Q6 as needed ? Orthopedic surgeon consulted, appreciate recommendations -Aspirin 81 mg BID for 3 weeks [08/27/2024-09/17/2024] -PT pending ?Will to monitor #Hypoosmolar hyponatremia ? Sodium 137 today ? Likely be due to dehydration given the patient did not have anything to drink or eat prior to going to the hospital Plan: ? Will continue to monitor #Normocytic normochromic anemia ? Hemoglobin today 9.8 ? Baseline hemoglobin 12.1 ? DDx nutrient deficiency versus less likely blood loss ?No active signs of bleeding Plan: ? Will check for hemoglobin less than 7 ? Will continue to monitor #Active smoker ? Active smoking can play a role in possible underlying osteoporosis ? Nicotine patch ordered #Hx of Anxiety and Depression ? Will restart patient's Abilify 10mg qday and Prozac 60mg qday Disposition: Patient admitted to med surg for L femoral fracture pending PT. Diet: Regular GI prophylaxis: not indicated DVT prophylaxis: SCDs Code: Full code Case disclosed with Attending Dr. Tejeda and my senior Dr. Bonds PGY3 Mac Brooks PGY1 Attending Provider Attestation/Addendum IRsoalind, DO, attest that I was physically present for the mei portions of the service and evaluated the patient with the resident and I reviewed and discussed the case with the resident and agree with the resident's findings and plans of care as documented above Patient seen and eval this a.m. She states that she is feeling well. Patient was able to stand and take a few steps with physical therapy. Patient reports that pain is well-controlled with [place]. Dressing is clean dry and intact otherwise. She denies any fevers, chills, nausea, vomiting otherwise. [facility] Anticipate discharge within the next 24 to 48 hours. Will start aspirin 81 mg twice a day for DVT prophylaxis as per Ortho recommendations.
--- NOTE | 2024-08-27 10:49 | PC.SS ---
Rounding: POD #1, pending a PT eval
--- NOTE | 2024-08-27 14:25 | PC.SS ---
Addendum entered by Jocelin Kumar 08/27/24 14:27: Late Entry: Correct time 0945 Original Note: SS met with pt at bedside to discuss choices for SNF. SS provided following accepting facilities: [facility], [facility], [facility], and [facility]. [facility] is considering. [facility] declined. Pt decided to wants [facility]. SS reached out to Susana who is pending bed availability.
[2024-08-28] VITALS: BP 99/58; PULSE 70; RESP 18; TEMP 36.9; O2SAT 95
[2024-08-28] MEDS: HYDROcodone/APAP 7.5/325 TABLET 1 TAB PO ×6 (00:40→23:46)
[2024-08-28] MEDS: HYDROmorphone INJ 2 MG/ML VIAL 0.25 MG IVP (02:21)
[2024-08-28 04:00] VITALS: BP 93/61; PULSE 69; RESP 18; TEMP 36.2; O2SAT 98
[2024-08-28 05:57] LABS: Basophils % (Auto) 0 % (0-2.5); Eosinophils # (Auto) 0.1 Thou/mm3 (0.0-0.5); Eosinophils % (Auto) 1 % (0-10); Hematocrit 29.1 % (36.0-46.0); Hemoglobin 9.7 g/dL (12.0-16.0); Immature Granulocytes % (Auto) 0 % (0-0); Immature Granulocytes Auto 0.01 Thou/mm3 (0.00-0.00); Lymphocytes # (Auto) 1.9 Thou/mm3 (1.0-4.8); Lymphocytes % (Auto) 27 % (10-50); Mean Corpuscular HGB Conc 33.3 g/dl (31.0-37.0); Mean Corpuscular Volume 87 fL (80-100); Monocytes # (Auto) 0.7 Thou/mm3 (0.0-0.8); Monocytes % (Auto) 11 % (0-12); Neutrophils # (Auto) 4.3 Thou/mm3 (1.8-7.7); Neutrophils % (Auto) 61 % (37-80); Nucleated Red Blood Cell % 0 /100 WBC (0); Platelet Count 218 Thou/mm3 (140-440); RDW Standard Deviation 45.7 fL (36.4-46.3); Red Blood Count 3.35 Miln/mm3 (4.00-5.20)
[2024-08-28 06:21] LABS: Alanine Aminotransferase 16 U/L (10-49); Alkaline Phosphatase 71 U/L (46-116); Anion Gap 7 (7-16); Aspartate Amino Transferase 21 U/L (0-34); BUN/Creatinine Ratio 18 Ratio (12-20); Bilirubin,Total 0.6 mg/dL (0.3-1.2); Blood Urea Nitrogen 9 mg/dL (9-23); Calcium 8.7 mg/dL (8.3-10.6); Calcium (Corrected) 8.7 mg/dL (8.5-10.1); Carbon Dioxide 28.8 mMol/L (20.0-31.0); Chloride 102 mMol/L (98-107); Creatinine (Component) 0.5 mg/dL (0.6-1.3); Estimated Creatinine Clearance 136.7 mL/min (>60); Glucose 91 mg/dL (74-106); Osmolality,Calculated 274 (275-295); Potassium 3.4 mMol/L (3.4-5.1); Sodium 138 mMol/L (136-145); eGFR > 60 See Note
[2024-08-28 08:00] VITALS: BP 111/60; PULSE 82; RESP 18; TEMP 36.9; O2SAT 95
[2024-08-28] MEDS: FLUoxetine HCL 10 MG CAPSULE 60 MG PO (08:48)
[2024-08-28] MEDS: NICOTINE PATCH 14 MG/24 HR PATCH.TD24 TOP (08:49)
[2024-08-28] MEDS: ASPIRIN EC 81 MG TABEC PO ×2 (08:49→20:04)
[2024-08-28] MEDS: ARIPiprazole 5 MG TABLET 10 MG PO (08:49)
[2024-08-28] MEDS: MORPHINE SULF INJ 10 MG/ML VIAL 4 MG IV (08:49)
[2024-08-28] MEDS: LACTULOSE SYRUP 20 GM/30 ML UDC PO (08:58)
--- NOTE | 2024-08-28 09:45 | PC.SS ---
SS follow up note; SS contacted Susana from [facility] to check status on authorization, at the time auth is still pending.
[2024-08-28 12:00] VITALS: BP 116/65; PULSE 67; RESP 18; TEMP 36.2; O2SAT 99
--- NOTE | 2024-08-28 13:20 | ESPR_ITS ---
<Statement entered by Neva Bonds MD - 08/28/24 13:40> I discussed with and supervised my co-resident involved in the care of this patient. I agree with the assessment and plan as documented above. POD 2. Continues to complain of pain while on dilaudid and norco. Will try to wean off norco and work with physical therapy. Anticipate discharge to SNF pending insurance auth. Will continue DVT prophylaxis. Neva Bonds MD PGY-3 Documentation for date of: 08/28/24 Subjective Subjective Interval history: Patient was seen at bedside this morning. No ON events. Patient is doing well, but she has still not had a bowel movement. Gave lactulose x 1 again today. Patient states her pain is well-controlled at this time. Will discontinue patient's Dilaudid on morphine at this time. Patient is still pending SNF authorization. Exam Vital Signs Temp Pulse Resp BP Pulse Ox O2 Del Method O2 Flow Rate 97.2 F 67 18 116/65 99 Room Air 2.5 08/28/24 12:00 08/28/24 12:00 08/28/24 12:00 08/28/24 12:00 08/28/24 12:00 08/28/24 12:00 08/27/24 00:00 Narrative Exam General: A/O x3, no acute distress, well-nourished, well-developed Eyes: PERRL, EOMI. Anicteric, vision grossly intact. Ears: No ear pain, no ear discharge, Hearing grossly intact. Nose: No nasal discharge. Mouth/Throat: Moist mucous membranes, no redness, no lesions. Neck: Neck supple, non-tender, no cervical lymphadenopathy. Lungs: Clear HELIO to auscultation and percussion, No accessory muscle use. Cardio: Normal S1/S2, regular rhythm, no murmurs, no JVD Abdomen: Soft, non-tender, no palpable masses, peristalsis present, no guarding or rebound. Extremities: Symmetrical, no significant deformities, no peripheral edema , peripheral pulses presents. L knee wrapped with clean dressing. Skin: No rashes, no lesions, warm to touch. Neuro: No focal neurological deficits. motor and sensory intact Psych: Cooperative, appropriate mood and effect. Objective Labs 08/29/24 04:13 08/29/24 04:13 Labs: Laboratory Results - last 24 hr 08/25/24 08/28/24 14:26 04:01 WBC 7.0 RBC 3.35 L Hgb 9.7 L Hct 29.1 L MCV 87 MCH 29.0 MCHC 33.3 RDW Std Deviation 45.7 Plt Count 218 D Neut % (Auto) 61 Lymph % (Auto) 27 [place] % (Auto) 11 Eos % (Auto) 1 Baso % (Auto) 0 Neut # (Auto) 4.3 Lymph # (Auto) 1.9 [place] # (Auto) 0.7 Eos # (Auto) 0.1 Baso # (Auto) 0.0 Immature Gran # (Auto) 0.01 H Absolute Nucleated RBC 0.00 Immature Gran % 0 Nucleated RBC % 0 Sodium 138 Potassium 3.4 Chloride 102 Carbon Dioxide 28.8 Anion Gap 7 BUN 9 Creatinine 0.5 L Estim Creat Clear Calc 136.7 eGFR > 60 BUN/Creatinine Ratio 18 Glucose 91 Calculated Osmolality 274 L Calcium 8.7 Corrected Calcium 8.7 Total Bilirubin 0.6 AST 21 ALT 16 Alkaline Phosphatase 71 Total Protein 6.0 Albumin 4.0 Globulin 2.0 L Albumin/Globulin Ratio 2.0 Blood Type B Positive Antibody Screen NEGATIVE Crossmatch See Detail Blood Bank Wristband ID Yes Quality Measures Quality Measures none Assessment & Plan Assessment Current Active Medications: Generic Name Dose Route Start Last Admin Trade Name Freq PRN Reason Stop Dose Admin Acetaminophen 650 mg 08/24/24 16:17 Acetaminophen 325 Mg Tablet PO 09/23/24 10:09 Q6H PRN pain and Fever >100.4 Hydrocodone Bitart/Acetaminophen 1 tab 08/28/24 10:39 08/28/24 11:25 Hydrocodone/Apap 7.5/325 Tablet PO 08/30/24 08:59 1 tab Q4HR PRN Administration PAIN SCALE 4-10(Mod-Sev Aripiprazole 10 mg 08/27/24 09:00 08/28/24 08:49 Aripiprazole 5 Mg Tablet PO 09/26/24 08:59 10 mg DAILY OMAR Administration Aspirin 81 mg 08/27/24 09:00 08/28/24 08:49 Aspirin Ec 81 Mg Tabec PO 09/26/24 08:59 81 mg BID OMAR Administration Fluoxetine HCl 60 mg 08/27/24 09:00 08/28/24 08:48 Fluoxetine Hcl 10 Mg Capsule PO 09/26/24 08:59 60 mg QAM OMAR Administration Nicotine 14 mg 08/24/24 10:15 08/28/24 08:49 Nicotine Patch 14 Mg/24 Hr Patch.Td24 TOP 09/23/24 10:14 14 mg QDAY OMAR Administration Ondansetron HCl 4 mg 08/26/24 16:02 Ondansetron Inj 2 Mg/Ml Inj 2 Ml IV 09/25/24 16:01 Q6HR PRN NAUSEA OR VOMITING Plan 54-year-old female with past medical history of bilateral knee replacement, active smoker, and Anxiety/Depression was admitted to the hospital on 08/24/2024 for nondisplaced left femoral fracture. #Nondisplaced left femoral fracture, s/p ORIF (08/26/2024) #Mechanical fall #Hx of bilateral knee replacement ? Patient came in with complaints of mechanical fall in which she landed on her bent left knee ? Left knee CT showed acute supracondylar fracture of the distal femur without significant displacement ? Left knee x-ray showed acute supracondylar fracture of distal femoral shaft without significant displacement ?Patient had sucessful ORIF Plan: ? Pain management with [place] to 7.5 4 hours as needed, and Tylenol 650 mg Q6 as needed ? Orthopedic surgeon consulted, appreciate recommendations -Aspirin 81 mg BID for 3 weeks [08/27/2024-09/17/2024] -Pending SNF auth ?Will to monitor #Hypoosmolar hyponatremia ? Sodium 138 today ? Likely be due to dehydration given the patient did not have anything to drink or eat prior to going to the hospital Plan: ? Will continue to monitor #Normocytic normochromic anemia ? Hemoglobin today 9.7 ? Baseline hemoglobin 12.1 ? DDx nutrient deficiency versus less likely blood loss ?No active signs of bleeding Plan: ? Will check for hemoglobin less than 7 ? Will continue to monitor #Active smoker ? Active smoking can play a role in possible underlying osteoporosis ? Nicotine patch ordered #Hx of Anxiety and Depression ? Will continue patient's Abilify 10mg qday and Prozac 60mg qday Disposition: Patient admitted to med surg for L femoral fracture pending SNF auth. Diet: Regular GI prophylaxis: not indicated DVT prophylaxis: SCDs Code: Full code Case disclosed with Attending Dr. Tejeda and my senior Dr. Bonds PGY3 Mac Brooks PGY1 Attending Provider Attestation/Addendum I, Rosalind Tejeda DO, attest that I was physically present for the mei portions of the service and evaluated the patient with the resident and I reviewed and discussed the case with the resident and agree with the resident's findings and plans of care as documented above Patient seen and evaluated this AM. She states she is feeling well and has been able to transfer independently to the commode. Patient can be discharged to SNF once auth is obtained. No acute events overnight otherwise.
--- NOTE | 2024-08-28 15:50 | PC.SS ---
SS follow up note; authorization is still pending at the time.
[2024-08-28 16:00] VITALS: BP 109/62; PULSE 67; RESP 16; TEMP 36.2; O2SAT 99
[2024-08-28 20:00] VITALS: BP 99/60; PULSE 68; RESP 18; TEMP 36.5; O2SAT 99
[2024-08-29] VITALS: BP 99/54; PULSE 81; RESP 20; TEMP 36.4; O2SAT 98
[2024-08-29] MEDS: HYDROcodone/APAP 7.5/325 TABLET 1 TAB PO ×3 (03:43→13:03)
[2024-08-29 04:00] VITALS: BP 98/54; PULSE 61; RESP 18; TEMP 36.3; O2SAT 97
[2024-08-29 05:47] LABS: Basophils % (Auto) 0 % (0-2.5); Eosinophils # (Auto) 0.1 Thou/mm3 (0.0-0.5); Eosinophils % (Auto) 2 % (0-10); Hematocrit 29.1 % (36.0-46.0); Hemoglobin 9.9 g/dL (12.0-16.0); Immature Granulocytes % (Auto) 0 % (0-0); Immature Granulocytes Auto 0.01 Thou/mm3 (0.00-0.00); Lymphocytes # (Auto) 1.7 Thou/mm3 (1.0-4.8); Lymphocytes % (Auto) 26 % (10-50); Mean Corpuscular Hemoglobin 29.7 pg (25.0-35.0); Mean Corpuscular Volume 87 fL (80-100); Monocytes # (Auto) 0.7 Thou/mm3 (0.0-0.8); Monocytes % (Auto) 10 % (0-12); Neutrophils % (Auto) 61 % (37-80); Nucleated Red Blood Cell % 0 /100 WBC (0); Platelet Count 217 Thou/mm3 (140-440); RDW Standard Deviation 45.3 fL (36.4-46.3); Red Blood Count 3.33 Miln/mm3 (4.00-5.20); White Blood Count 6.5 Thou/mm3 (3.6-11.0)
[2024-08-29 06:48] LABS: Alanine Aminotransferase 40 U/L (10-49); Albumin, Serum 4.1 gm/dL (3.5-5.0); Albumin/Globulin Ratio 1.9 (1.2-2.2); Alkaline Phosphatase 103 U/L (46-116); Anion Gap 6 (7-16); Aspartate Amino Transferase 36 U/L (0-34); BUN/Creatinine Ratio 22 Ratio (12-20); Bilirubin,Total 0.6 mg/dL (0.3-1.2); Blood Urea Nitrogen 11 mg/dL (9-23); Calcium 9.1 mg/dL (8.3-10.6); Calcium (Corrected) 9.1 mg/dL (8.5-10.1); Carbon Dioxide 29.6 mMol/L (20.0-31.0); Chloride 100 mMol/L (98-107); Creatinine (Component) 0.5 mg/dL (0.6-1.3); Estimated Creatinine Clearance 136.7 mL/min (>60); Globulin 2.2 gm/dL (2.3-3.5); Glucose 89 mg/dL (74-106); Osmolality,Calculated 270 (275-295); Potassium 3.6 mMol/L (3.4-5.1); Sodium 136 mMol/L (136-145); Total Protein 6.3 gm/dL (5.7-8.2); eGFR > 60 See Note
[2024-08-29 08:00] VITALS: BP 106/69; PULSE 73; RESP 16; TEMP 36.3; O2SAT 95
[2024-08-29] MEDS: ASPIRIN EC 81 MG TABEC PO (08:03)
[2024-08-29] MEDS: FLUoxetine HCL 10 MG CAPSULE 60 MG PO (08:03)
[2024-08-29] MEDS: ARIPiprazole 5 MG TABLET 10 MG PO (08:03)
[2024-08-29] MEDS: NICOTINE PATCH 14 MG/24 HR PATCH.TD24 TOP (08:03)
--- NOTE | 2024-08-29 09:00 | PC.SS ---
Addendum entered by Lauren Fuentes 08/29/24 09:59: SS set up transportation with [facility] for 12PM. SS will update patient and patient's nurse. Original Note: SS follow up note; Susana from [facility] contacted SS and informed SS that authorization was obtained. SS contacted [facility]. [facility] contacted [facility]. SS will contact [facility] to set up transportation.
--- NOTE | 2024-08-29 11:00 | ESDS_ITS ---
<Statement entered by Rosalind Tejeda DO - 09/01/24 15:06> I, Rosalind Tejeda DO, attest that I was physically present for the mei portions of the service and evaluated the patient with the resident and I reviewed and discussed the case with the resident and agree with the resident's findings and plans of care as documented above Planned Discharge Date 08/29/24 DS: Providers Provider Date of admission: 08/24/24 10:10 Primary care physician: Kain Velasquez MD Admitting Provider: Rocco Ramirez MD Attending Provider on Admission: Rosalind Tejeda DO Consults: 08/24/24 05:32 Consult to Orthopedic Stat Comment: Consulting Provider: Kain Velasquez 08/27/24 14:56 Referral Physical Therapy Routine Comment: PT to mobilize. Left leg non weight bear Physician Instructions: Mobilize full weight bearing Attending Provider on DC: Neva Bonds MD Discharging Provider: Neva Bonds MD DS: Diagnosis Problem List Completed Was Problem List Reviewed/Reconciled?: Yes Hospital Course Hospital Course Hospital course: 54-year-old female with past medical history of bilateral knee replacement, active smoker, and anxiety/depression was admitted to the hospital on 08/24/2024 after coming to the ED with complaints of left knee pain after a ground-level fall after slipping on some spilt tea. She denied hitting her head, loss of consciousness, palpitations, chest pain, or dizziness. Left knee x-ray and CT showed acute supracondylar fracture of distal femoral shaft without significant displacement. Orthopedic surgeon was consulted and patient underwent ORIF of the left knee on 08/26/2024 without complication. She was started on aspirin twice a day for DVT prophylaxis. Pain was managed. Patient is stable to be discharged to SNF with the following recommendations: - Take aspirin 81mg by mouth twice a day for 30 days - Continue all other home meds - Follow up with your primary care physician within 1 week of discharge. If you do not have a primary care physician, please follow up with the [facility] ([phone]) I have reviewed and discussed the patient's care with my attending, Dr. Nikhil Bonds MD PGY-3 #Nondisplaced left femoral fracture, s/p ORIF (08/26/2024) #Mechanical fall #Hx of bilateral knee replacement #Normocytic normochromic anemia #Hypoosmolar hyponatremia, resolved #Hx of Anxiety and Depression Status at Discharge Overall status at discharge: patient is progressing back to baseline Time Spent with Patient Time attestation: Total time spent providing and/or coordinating discharge services: 35 min Time spent: Greater than 30 minutes Exam Vital Signs Temp Pulse Resp BP Pulse Ox O2 Del Method O2 Flow Rate 97.0 F 67 17 105/53 L 100 Room Air 2.5 08/29/24 12:00 08/29/24 12:08/29/24 12:00 08/29/24 12:08/29/24 12:08/29/24 12:08/29/24 00:00 Narrative Exam Constitutional: Awake, alert, no acute distress. HEENT: Vision grossly intact. Mucous membranes moist. Respiratory: Non-tachypneic, no increased work of breathing Cardiac: Normal S1, S2. No MRG appreciated. Abdomen: Soft, non-distended, non-tender. No guarding, no rebound. MSK: L knee wrapped in clean dressing. Skin: Warm, dry, intact. No obvious lesions. Neuro: Motor and sensation grossly intact. Psychiatric: Appropriate mood and affect. Discharge Plan Plan Patient Disposition: Xfer Skilled Nsg Fac (SNF) Disposition Comment: [facility] Stable Prescriptions/Referrals Prescriptions/Med Rec: New aspirin [Ecotrin Low Strength] 81 mg Tablet,Delayed Release (Dr/Ec) 81 mg PO BID 28 Days Qty: 56 0RF hydrocodone-acetaminophen 5-325 mg tablet 1 tab PO TID MDD 3 PRN (Reason: pain) Qty: 15 0RF Continued fluoxetine [Prozac] 40 MG capsule 60 mg PO QAM Qty: 0 trazodone 150 mg Tablet 150 mg PO QHSPRN aripiprazole [Abilify] 5 mg Tablet 10 mg PO DAILY oxybutynin chloride 5 mg tablet 5 mg PO Q12H ropinirole 1 mg tablet 1 mg PO .QHS Patient Comments: TAKE ONE TABLET BY MOUTH 1-3 HOURS BEFORE bedtime FOR RESTLESS LEG SYNDROME dicyclomine 10 mg capsule 10 mg PO 3XD albuterol sulfate [Ventolin HFA] 90 mcg/actuation HFA aerosol inhaler 2 puff inhalation Q6H PRN (Reason: shortness of breath or wheezing) Qty: 8.5 0RF Discontinued ibuprofen 600 mg tablet 800 mg PO Q8H PRN (Reason: pain (scale score 4-6)) Referrals: Kain Velasquez MD [Primary Care Provider] - Patient/Caregiver Discharge Instructions Print Language: Icelandic Stand Alone Forms: [facility] Award Info., Patient Portal Info Letter Discharge Order Discharge Orders: Discharge (Routine); Ordered 08/29/24 Ordered By: Neva Bonds Quality Discharge Quality Measures VTE prophylaxis
[2024-08-29 12:00] VITALS: BP 105/53; PULSE 67; RESP 17; TEMP 36.1; O2SAT 100
--- NOTE | 2024-08-29 13:35 | PC.NURSE ---
CAll to the surgery to get a hold of Dr. Vargas at surgery in regards to the pt. first dressing change. Dr. vargas okay to change the dressing and have pt. call his office to schedule the appiontment
--- NOTE | 2024-08-29 14:00 | PC.NURSE ---
report given to norris at rehab.
== END 2024-08-29 14:14 | disposition skilled nursing facility (03) | DRG 308 ==
LOC: SERX 09:17 → SERHOLD 10:22 → S3NX 16:11
PROVIDERS: Physician Assistant; Admitting Provider Student in an Organized Health Care Education/Training Program; Emergency Provider Emergency Medicine; PCP Orthopaedic Surgery; Visit Provider Internal Medicine
PROC: 0QSC04Z Reposition Left Lower Femur with Internal Fixation Device, Open Approach (ICD-10-PCS; CPT 27514; principal; 2024-08-26 12:00)
DX: S72.455A Nondisplaced supracondylar fracture without intracondylar extension of lower end of left femur, initial encounter for closed fracture (principal); E87.1 Hypo-osmolality and hyponatremia; E86.0 Dehydration; D64.9 Anemia, unspecified; F32.A Depression, unspecified; F41.9 Anxiety disorder, unspecified; F17.210 Nicotine dependence, cigarettes, uncomplicated; Z96.653 Presence of artificial knee joint, bilateral; Z79.899 Other long term (current) drug therapy; W01.0XXA Fall on same level from slipping, tripping and stumbling without subsequent striking against object, initial encounter
CPT/HCPCS: 36415; 70450; 72125; 73560; 73562; 73700; 76000; 80053; 83735; 84295; 85025; 85610; 85730; 86850; 86900; 86901; 86923; 96372; 96374; 96375; 96376; 97162; 99285; A4217; A4649; C1713; J0131; J0689; J1100; J1580; J1650; J2250; J2270; J2371; J2405; J2704; J2765; J3010; J3490; J7030; P9016; P9047; A9270

== ENCOUNTER → 2024-11-07 | Outpatient (CLI) | payer MEDICAID, SELFPAY ==
--- NOTE | 2024-11-07 12:56 | XR_ITS ---
Examination: Knee, left , 3 views Technique: Knee AP, lateral, oblique 3 views Date and time of exam: November 07, 2024 1407 hours Comparison August 26, 2024 INDICATIONS: Acute fracture distal femoral shaft, postop reduction internal fixation fracture August 26, 2024 FINDINGS: Interval partial healing of fracture distal femoral shaft Stable and satisfactory alignment Orthopedic hardware satisfactory position IMPRESSION: Interval partial healing fracture distal femoral shaft with stable and satisfactory alignment
== END | disposition home or self-care (01) ==
PROVIDERS: PCP Orthopaedic Surgery; Referring Provider Orthopaedic Surgery; Visit Provider Orthopaedic Surgery
DX: S72.302A Unspecified fracture of shaft of left femur, initial encounter for closed fracture (principal); X58.XXXA Exposure to other specified factors, initial encounter; Z98.890 Other specified postprocedural states
CPT/HCPCS: 73562

== ENCOUNTER → 2024-11-28 | Outpatient (CLI) | payer MEDICAID, SELFPAY ==
--- NOTE | 2024-11-28 10:47 | XR_ITS ---
Examination: Knee, left , 3 views Technique: Knee AP, lateral, oblique 3 views Date and time of exam: November 28, 2024 1120 hours INDICATIONS: Status post operative reduction internal fixation fracture distal femoral shaft November 23, 2024 FINDINGS: Significant partial healing fracture distal femoral shaft Satisfactory alignment Orthopedic hardware satisfactory position IMPRESSION: Significant partial healing fracture distal femoral shaft with satisfactory alignment
== END | disposition home or self-care (01) ==
LOC: CDIM 10:22
PROVIDERS: PCP Physician Assistant; Referring Provider Orthopaedic Surgery; Visit Provider Orthopaedic Surgery
DX: S72.302D Unspecified fracture of shaft of left femur, subsequent encounter for closed fracture with routine healing (principal); X58.XXXD Exposure to other specified factors, subsequent encounter; Z98.890 Other specified postprocedural states
CPT/HCPCS: 73562